=== PATIENT | male | born 1955 | race American Indian/Alaskan Native ===

== ENCOUNTER 2019-09-19 12:26 | Emergency (ER) | payer MEDICARE ==
[2019-09-19] MEDS ORDERED: SODIUM CHLORIDE 0.9% 500 ML 500 ML IV ONE ×2 (13:07→14:44)
[2019-09-19] MEDS ORDERED: DEXTROSE 50% IN WATER (25GM) 50 ML VIAL IV PRN (13:07)
--- NOTE | 2019-09-19 13:11 | Emergency Department Report ---
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 Rate: normal When compared to previous EKG there are: previous EKG unavailable 09/19/19 14:22 Sinus rhythm, 96 bpm, normal axis, normal interval There is motion artifact and left ventricular hypertrophy. The EKG is not a STEMI, the EKG is abnormal. 09/19/19 14:25 - Radiology Data Radiology results: pending, report reviewed, image reviewed Print Report Print Report Referring Physician: CARYN ULLOA Patient Name: GLADIS HUTCHINS Date of : 1955 Sex: Male Report Date: 2019-09-19 Report Status: Finalized Findings [facility] [address] [place] [address] Cat Scan Report Signed Patient: GLADIS HUTCHINS MR#: [id number] : 1955 Acct:[id number] Age/Sex: 64 / M ADM Date: 09/19/19 Loc: ED Attending Dr: Ordering Physician: CARYN ULLOA MD Date of Service: 09/19/19 Procedure(s): CT head/brain wo con Accession Number(s): [id number] cc: CARYN ULLOA MD CT BRAIN: 09/19/2019 INDICATION / CLINICAL INFORMATION: L arm and leg weakness and numbness since "last Sunday" fallen multiple times since weakness began per pt.. COMPARISON: None available. FINDINGS: BRAIN/INTRACRANIAL STRUCTURES: Unenhanced CT images of the brain demonstrate no evidence of acute intracranial abnormality. Ventricles and sulci are slightly prominent in size, consistent with age-related atrophic change. There is no evidence of acute ischemic injury, hemorrhage, or mass. Some chronic white matter hypodensities are present in the periventricular and deep white matter, primarily in the right hemisphere. This pattern would be consistent with chronic small vessel ischemic change, although demyelination can be considered within the differential diagnosis in the proper clinical setting. 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 This is generally considered to be of no clinical significance. EX TRACRANIAL STRUCTURES: Unremarkable. IMPRESSION: No acute abnormality. Chronic changes as described above. All CT scans at this location are performed using dose reduction to ALARA by means of automated exposure control. Signer Name: Nathan Engel MD Signed: 09/19/2019 2:00 PM Workstation Name: [id number] Transcribed By: AO Dictated By: Nathan Engel MD Electronically Authenticated By: Nathan Engel MD Signed Date/Time: 09/19/19 1400 DD/ 1359 TD/TT: Print Report Referring Physician: CARYN ULLOA Patient Name: GLADIS HUTCHINS Date of : 1955 Sex: Male Report Date: 2019-09-19 Report Status: Finalized Findings [address] [address] XRay Report Signed Patient: GLADIS HUTCHINS MR#: [id number] : 1955 Acct:[id number] Age/Sex: 64 / M ADM Date: 09/19/19 Loc: ED Attending Dr: Ordering Physician: CARYN ULLOA MD Date of Service: 09/19/19 Procedure(s): XR pelvis 1-2V Accession Number(s): [id number] cc: CARYN ULLOA MD Fluoro Time In Minutes: PELVIS 1 VIEW(S) INDICATION / CLINICAL INFORMATION: falls weakness COMPARISON: None available. FINDINGS: BONES / JOINT(S): No acute fracture or subluxation. Mild bilateral hip degenerative arthrosis. Transitional lumbosacral segment with mild degenerative change at the articulation between the right L5 transverse process and the sacrum. SOFT TISSUES: No significant abnormality. AD DITIONAL FINDINGS: None. Signer Name: Frank Clayton MD Signed: 09/19/2019 1:40 PM Workstation Name: [id number] Transcribed By: DT Dictated By: Kingsley Clayton MD Electronically Authenticated By: Kingsley Clayton MD Signed Date/Time: 09/19/19 1340 DD/ 1339 TD/TT: Print Report Referring Physician: CARYN ULLOA Patient Name: GLADIS HUTCHINS Date of : 1955 Sex: Male Report Date: 2019-09-19 Report Status: Finalized Findings [address] [address] XRay Report Signed Patient: GLADIS HUTCHINS MR#: [id number] : 1955 Acct:[id number] Age/Sex: 64 / M ADM Date: 09/19/19 Loc: ED Attending Dr: Ordering Physician: CARYN ULLOA MD Date of Service: 09/19/19 Procedure(s): XR chest 1V ap Accession Number(s): [id number] cc: CARYN ULLOA MD Fluoro Time In Minutes: CHEST 1 VIEW 09/19/2019 1:10 PM INDICATION / CLINICAL INFORMATION: weakness cough hx of lung ca. COMPARISON: None available. FINDINGS: SUPPORT DEVICES: None. HEART / MEDIASTINUM: Heart is normal size. Surgical clips in the right suprahilar region likely related to prior lung cancer surgery. LUNGS / PLEURA: Linear scarring in the right upper lobe. No definite mass. No airspace disease. No pneumothorax. ADDITIONAL FINDINGS: No significant additional findings. IMPRESSION: 1. No acute findings. 2. Postoperative findings in the right suprahilar region/right upper lobe. Signer Name: Frank Clayton MD Signed: 09/19/2019 1:42 PM Workstation Name: [id number] Transcribed By: DT Dictated By: Kingsley Clayton MD Electronically Authenticated By: Kingsley Clayton MD Signed Date/Time: 09/19/19 1342 DD/ 1340 TD/TT: - Core Measures Measure Exclusions: not indicated - Thrombolytic Inclusion/Exclusion Thrombolytic Exclusion Criteria: Symptom Onset > 3 Hours Critical Care Time: Yes Critical care time in (mins) excluding proc time.: 60 Critical care attestation.: If time is entered above; I have spent that time in minutes in the direct care of this critically ill patient, excluding procedure time. ED Disposition Clinical Impression: Stroke, Thrombocytopenia, Macrocytic anemia, Leukocytosis, Hypothyroidism [id number] IP Is pt being admited?: No Does the pt Need Aspirin: No Condition: Serious Referrals: PRIMARY CARE, [Primary Care Provider] - 3-5 Days
[2019-09-19 13:36] LABS: Mean Corpuscular HGB Conc 31 % (32-34); Red Blood Count 1.41 M/mm3 (3.65-5.03)
--- NOTE | 2019-09-19 13:44 | XRay Report ---
PELVIS 1 VIEW(S) INDICATION / CLINICAL INFORMATION: falls weakness COMPARISON: None available. FINDINGS: BONES / JOINT(S): No acute fracture or subluxation. Mild bilateral hip degenerative arthrosis. Transi tional lumbosacral segment with mild degenerative change at the articulation between the right L5 tra nsverse process and the sacrum. SOFT TISSUES: No significant abnormality. ADDITIONAL FINDINGS: None. Signer Name: Frank Clayton MD Signed: 09/19/2019 1:40 PM Workstation Name: [id number]
[2019-09-19 13:46] LABS: INR 1.04 (0.87-1.13)
--- NOTE | 2019-09-19 13:46 | XRay Report ---
CHEST 1 VIEW 09/19/2019 1:10 PM INDICATION / CLINICAL INFORMATION: weakness cough hx of lung ca. COMPARISON: None available. FINDINGS: SUPPORT DEVICES: None. HEART / MEDIASTINUM: Heart is normal size. Surgical clips in the right suprahilar region likely relat ed to prior lung cancer surgery. LUNGS / PLEURA: Linear scarring in the right upper lobe. No definite mass. No airspace disease. No pn eumothorax. ADDITIONAL FINDINGS: No significant additional findings. IMPRESSION: 1. No acute findings. 2. Postoperative findings in the right suprahilar region/right upper lobe. Signer Name: Frank Clayton MD Signed: 09/19/2019 1:42 PM Workstation Name: [id number]
[2019-09-19 13:47] LABS: Partial Thromboplastin Time 28.6 Sec. (24.2-36.6)
[2019-09-19 13:57] LABS: Hematocrit 16.2 % (35.5-45.6); Mean Corpuscular Volume 115 fl (84-94); Platelet Count 58 K/mm3 (140-440); Red Cell Distribution Width 22.5 % (13.2-15.2)
[2019-09-19 14:03] LABS: Alanine Aminotransferase 50 units/L (7-56); Albumin 4.7 g/dL (3.9-5); BUN/Creatinine Ratio 21; Blood Urea Nitrogen 33 mg/dL (9-20); Calcium 9.7 mg/dL (8.4-10.2); Hemolysis Index 9
--- NOTE | 2019-09-19 14:04 | Cat Scan Report ---
CT BRAIN: 09/19/2019 INDICATION / CLINICAL INFORMATION: L arm and leg weakness and numbness since "last Sunday" fallen multiple times since weakness began pe r pt.. COMPARISON: None available. FINDINGS: BRAIN/INTRACRANIAL STRUCTURES: Unenhanced CT images of the brain demonstrate no evidence of acute int racranial abnormality. Ventricles and sulci are slightly prominent in size, consistent with age-related atrophic change. There is no evidence of acute ischemic injury, hemorrhage, or mass. Some chronic white matter hypoden sities are present in the periventricular and deep white matter, primarily in the right hemisphere. T his pattern would be consistent with chronic small vessel ischemic change, although demyelination can be considered within the differential diagnosis in the proper clinical setting. 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 This is generally considered t o be of no clinical significance. EXTRACRANIAL STRUCTURES: Unremarkable. IMPRESSION: No acute abnormality. Chronic changes as described above. All CT scans at this location are performed using dose reduction to ALARA by means of automated expos ure control. Signer Name: Nathan Engel MD Signed: 09/19/2019 2:00 PM Workstation Name: [id number]
[2019-09-19 14:12] LABS: Creatine Kinase MB < 1.0 ng/mL (0.0-4.0)
[2019-09-19 15:02] LABS: Anisocytosis 1+; Basophils % (Manual) 0 % (0.0-1.8); Eosinophils % (Manual) 0 % (0.0-4.3); Macrocytosis 1+; Monocytes % (Manual) 0.5 % (0.0-7.3); Myelocytes # (Manual) 5.8 K/mm3; Promyelocytes # (Manual) 7.8 K/mm3; Total Cells Counted 200
[2019-09-19 15:03] LABS: Platelet Estimate Consistent w Auto; Smudge Cells 3+
[2019-09-19 15:20] LABS: Bacteria,Urine 1+ /HPF (Negative); Bilirubin,Urine NEG (Negative); Blood,Urine SM (Negative); Color,Urine Yellow (Yellow); Hyaline Casts,Urine 1 /LPF; Mucus,Urine 2+ /HPF; Protein,Urine <15 mg/dL mg/dL (Negative); Urobilinogen,Urine < 2.0 mg/dL (<2.0)
[2019-09-19] MEDS ORDERED: LEVOTHYROXINE 112 MCG TAB PO STA (16:10)
[2019-09-19] MEDS ORDERED: LEVOTHYROXINE 150 MCG TAB PO STA (16:13)
[2019-09-19 18:16] VITALS: BP 101/62
== END 2019-09-19 18:16 | disposition short-term general hospital (02) ==
LOC: ED 12:26
DX: I63.9 Cerebral infarction, unspecified (principal); D69.6 Thrombocytopenia, unspecified; D53.9 Nutritional anemia, unspecified; D72.829 Elevated white blood cell count, unspecified; E03.9 Hypothyroidism, unspecified; Z87.891 Personal history of nicotine dependence
CPT/HCPCS: 36415; 70450; 71045; 72170; 80053; 81001; 82550; 82553; 83735; 84439; 84443; 84484; 85007; 85025; 85610; 85670; 85730; 86850; 86900; 86901; 86920; 93005; 99285; J7040; 36430; 80320; G0480